=== PATIENT | female | born 1940 | race Caucasian/White ===

== ENCOUNTER 2021-11-20 21:10 | Emergency (ER) | payer BC, MEDICARE ==
[2021-11-20] MEDS ORDERED: REMDESIVIR 200 MG in Sodium Chloride 0.9% 250 ML IV ONE (21:23)
[2021-11-20] MEDS ORDERED: Acetaminophen 325 MG Tab PO PRN (21:23)
[2021-11-20] MEDS ORDERED: Dexamethasone 4 MG/ML SDV IVPUSH SCH (21:30)
[2021-11-20 21:32] VITALS: PULSE 78
--- NOTE | 2021-11-20 21:34 | EDM.PDOC ---
ED HPI GENERAL MEDICAL PROBLEM - General Chief Complaint: General Stated Complaint: COVID + [facility] Time Seen by Provider: 11/21/21 01:38 Source of Information: Reports: Patient History Limitations: Reports: Respiratory Distress - History of Present Illness INITIAL COMMENTS - FREE TEXT/NARRATIVE: This is an unimmunized 81-year-old female who presents via ambulance to the [facility] with significant fatigue and weakness. She reports shortness of breath. She was diagnosed with COVID-19 infection 3 days ago. She has been having symptoms for the past 5 days. She has had progressive weakness. She denies any significant cough. No nasal drainage or sinus pain. She does report sore throat. She lives at home with her spouse. Patient is DO NOT INTUBATE/DO NOT RESUSCITATE. Past medical history is notable for age-related macular degeneration of right eye, reactive airway disease, hyperlipidemia, impaired fasting glucose, dysphagia, osteoarthritis, and she is status post total right knee replacement. Medications include pantoprazole, albuterol, gabapentin, emu oil, Singulair, PreserVision, vitamin D3, cetirizine, calcium carbonate. Allergies are to disinfectants, latex, molds, perfumes. Patient has not received COVID-19 vaccination. She has a history of smoking. She quit 1984. She drinks alcohol occasionally. - Related Data Allergies Allergy/AdvReac Type Severity Reaction Status Date / Time Latex, Natural Rubber Allergy Airway Verified 11/20/21 21:20 Tightness Past Medical History - Past Surgical History Other HEENT Surgeries/Procedures: adnoids Other Female Surgeries/Procedures: bladder lift ED ROS GENERAL - Review of Systems Review Of Systems: See Below Constitutional: Reports: Malaise, Weakness, Fatigue HEENT: Reports: Throat Pain. Denies: Rhinitis, Sinus Problem Respiratory: Reports: Shortness of Breath. Denies: Cough Cardiovascular: Reports: No Symptoms Endocrine: Reports: No Symptoms GI/Abdominal: Reports: No Symptoms : Reports: No Symptoms Musculoskeletal: Reports: No Symptoms Skin: Reports: No Symptoms Neurological: Reports: No Symptoms Psychiatric: Reports: No Symptoms Hematologic/Lymphatic: Reports: No Symptoms Immunologic: Reports: No Symptoms ED EXAM, GENERAL - Physical Exam Exam: See Below Free Text/Narrative:: On exam, this patient appears very lethargic. She is awake and alert and answering questions appropriately. She is able to understand the severity of her condition. She is able to communicate her desires effectively. HEENT: Pupils equal. Conjunctiva clear. Mild pallor. Head is normocephalic and atraumatic. Hearing is intact. Nares are patent. No drainage. 1 mucosa is dry. No lesions or exudates. Nose pink. Neck: Trachea midline. No thyromegaly. No lymphadenopathy. Lungs: Bibasilar crackles. No rhonchi. No wheezes. Thing is somewhat shallow. Cardiovascular: Regular rate and rhythm. No murmurs. Abdomen: Soft and nontender. Nondistended. Extremities: Acrocyanosis present. Peripheral pulses are intact. No significant edema. Neurologic: Moving all limbs spontaneously. Patient grossly intact. Speech is intelligible. Exam Limited By: Respiratory Distress General Appearance: Lethargic #1 Interpretation EKG Date: 11/20/21 Time: 21:47 Rhythm: NSR Rate (Beats/Min): 78 P-Wave: Present QRS: Normal ST-T: Normal QT: Normal Course - Vital Signs Last Recorded V/S: Last Vital Signs Temp 98.2 F 11/20/21 22:07 Pulse 78 11/20/21 21:31 Resp 25 H 11/21/21 00:43 BP 116/57 L 11/21/21 00:43 Pulse Ox 93 L 11/21/21 00:43 Discussed principles of titrating FiO2. Discussed noninvasive positive pressure ventilation. Discussed admission and transfer. Discussed mechanical ventilation. Patient states that she would not want to be intubated or placed on a mechanical ventilator. She would except hospital transfer and she would accept noninvasive positive pressure ventilation. - Orders/Labs/Meds Orders: Active Orders 24 hr Category Date Time Status Cardiac Monitoring [RC] .As Directed Care 11/20/21 21:23 Active Positioning, Patient [RC] ASDIRECTED Care 11/20/21 21:24 Active Chest 1V Frontal [CR] Stat Exams 11/20/21 21:25 Taken CULTURE BLOOD [BC] Stat Lab 11/20/21 21:41 Received HEPATIC FUNCTION PANEL,HFP [CHEM] DAILY Lab 11/21/21 21:30 Ordered Acetaminophen [TylenoL] Med 11/20/21 21:23 Active 650 mg PO Q4H PRN Lidocaine 1% [Xylocaine-MPF 1%] Med 11/20/21 23:28 Active 2 ml INJECT Q2H PRN dexAMETHasone [Decadron] Med 11/20/21 21:30 Active 6 mg IVPUSH DAILY Isolation [COMM] Stat Oth 11/20/21 21:23 Ordered EKG 12 Lead [EK] Stat Ther 11/20/21 21:25 Ordered Medication Orders Acetaminophen (Acetaminophen 325 Mg Tab) 650 mg PO Q4H PRN PRN Reason: Fever Greater Than 101 Dexamethasone (Dexamethasone 4 Mg/Ml Sdv) 6 mg IVPUSH DAILY MIGUEL A Stop: 11/29/21 09:01 Last Admin: 11/20/21 22:04 Dose: 6 mg Documented by: CAROLE Lidocaine HCl (Lidocaine 1% 5 Ml Sdv) 2 ml INJECT Q2H PRN PRN Reason: add to potassium Last Admin: 11/21/21 01:24 Dose: 2 ml Documented by: MITCH Labs: Laboratory Tests 11/20/21 11/20/21 11/20/21 Range/Units 21:35 21:35 21:35 WBC 8.9 (3.2-11.0) K/uL RBC 4.82 (3.77-5.24) M/uL Hgb 14.5 (11.2-15.5) Hct 42.1 (34.3-46.0) % MCV 87.3 (81.4-99.0) fL MCH 30.1 L (31.6-35.5) pg MCHC 34.4 (31.6-35.5) g/dL Plt Count 263 (130-375) K/uL Add Manual Diff Yes Neutrophils % (Manual) 81 H (36-66) % Band Neutrophils % 1 L (5-11) % Lymphocytes % (Manual) 12 L (24-44) % Monocytes % (Manual) 6 (2-6) % Atypical Lymphocytes Few PT (9.2-10.6) sec INR APTT 25.8 (21.4-31.8) sec D-Dimer, Quantitative (0.0-500.0) ng/mL ABG Hemoglobin (12.0-16.0) g/dL ABG Oxyhemoglobin % ABG Carboxyhemoglobin (0.0-1.6) % ABG Methemoglobin % VBG pH (7.350-7.450) VBG pCO2 mm/Hg VBG pO2 mm/Hg VBG HCO3 mmol/L VBG Total CO2 mmol/L VBG O2 Saturation VBG O2 Content %vol VBG Base Excess mm/L O2 Delivery Device Sodium (140-148) mmol/L Potassium (3.6-5.2) mmol/L Chloride (100-108) mmol/L Carbon Dioxide (21-32) mmol/L Anion Gap (5.0-14.0) mmol/L BUN (7-18) mg/dL Creatinine (0.6-1.0) mg/dL Est Cr Clr Drug Dosing mL/min Estimated GFR (MDRD) (>60) Glucose (74-106) mg/dL Lactic Acid (0.4-2.0) mmol/L Calcium (8.5-10.1) mg/dL Ferritin 866 H (8-388) ng/ml Total Bilirubin (0.2-1.0) mg/dL Direct Bilirubin (0.0-0.2) mg/dL Indirect Bilirubin AST (15-37) U/L ALT (12-78) U/L Alkaline Phosphatase (46-116) U/L Lactate Dehydrogenase (82-234) U/L C-Reactive Protein (0.0-0.3) mg/dL Total Protein (6.4-8.2) g/dL Albumin (3.4-5.0) g/dL Globulin (2.3-3.5) g/dL Albumin/Globulin Ratio (1.2-2.2) Procalcitonin ng/mL 11/20/21 11/20/21 11/20/21 Range/Units 21:35 21:35 21:35 WBC (3.2-11.0) K/uL RBC (3.77-5.24) M/uL Hgb (11.2-15.5) Hct (34.3-46.0) % MCV (81.4-99.0) fL MCH (31.6-35.5) pg MCHC (31.6-35.5) g/dL Plt Count (130-375) K/uL Add Manual Diff Neutrophils % (Manual) (36-66) % Band Neutrophils % (5-11) % Lymphocytes % (Manual) (24-44) % Monocytes % (Manual) (2-6) % Atypical Lymphocytes PT (9.2-10.6) sec INR APTT (21.4-31.8) sec D-Dimer, Quantitative 2373.05 H (0.0-500.0) ng/mL ABG Hemoglobin 15.1 (12.0-16.0) g/dL ABG Oxyhemoglobin 46.6 % ABG Carboxyhemoglobin 2.4 H (0.0-1.6) % ABG Methemoglobin 0.8 % VBG pH 7.451 H (7.350-7.450) VBG pCO2 37.4 mm/Hg VBG pO2 27.2 mm/Hg VBG HCO3 25.7 mmol/L VBG Total CO2 22.4 mmol/L VBG O2 Saturation 48.1 VBG O2 Content 9.9 %vol VBG Base Excess 2.3 mm/L O2 Delivery Device Nasal cannula Sodium 137 L (140-148) mmol/L Potassium 3.0 L (3.6-5.2) mmol/L Chloride 100 (100-108) mmol/L Carbon Dioxide 27 (21-32) mmol/L Anion Gap 13.0 (5.0-14.0) mmol/L BUN 25 H (7-18) mg/dL Creatinine 0.9 (0.6-1.0) mg/dL Est Cr Clr Drug Dosing 41.24 mL/min Estimated GFR (MDRD) > 60 (>60) Glucose 173 H (74-106) mg/dL Lactic Acid (0.4-2.0) mmol/L Calcium 8.3 L (8.5-10.1) mg/dL Ferritin (8-388) ng/ml Total Bilirubin 0.5 (0.2-1.0) mg/dL Direct Bilirubin 0.15 (0.0-0.2) mg/dL Indirect Bilirubin 0.35 AST 71 H (15-37) U/L ALT 50 (12-78) U/L Alkaline Phosphatase 72 (46-116) U/L Lactate Dehydrogenase 689 H (82-234) U/L C-Reactive Protein 6.40 H (0.0-0.3) mg/dL Total Protein 6.1 L (6.4-8.2) g/dL Albumin 2.5 L (3.4-5.0) g/dL Globulin 3.6 H (2.3-3.5) g/dL Albumin/Globulin Ratio 0.7 L (1.2-2.2) Procalcitonin ng/mL 11/20/21 11/20/21 11/20/21 Range/Units 21:35 21:35 21:35 WBC (3.2-11.0) K/uL RBC (3.77-5.24) M/uL Hgb (11.2-15.5) Hct (34.3-46.0) % MCV (81.4-99.0) fL MCH (31.6-35.5) pg MCHC (31.6-35.5) g/dL Plt Count (130-375) K/uL Add Manual Diff Neutrophils % (Manual) (36-66) % Band Neutrophils % (5-11) % Lymphocytes % (Manual) (24-44) % Monocytes % (Manual) (2-6) % Atypical Lymphocytes PT 10.5 (9.2-10.6) sec INR 1.0 APTT (21.4-31.8) sec D-Dimer, Quantitative (0.0-500.0) ng/mL ABG Hemoglobin (12.0-16.0) g/dL ABG Oxyhemoglobin % ABG Carboxyhemoglobin (0.0-1.6) % ABG Methemoglobin % VBG pH (7.350-7.450) VBG pCO2 mm/Hg VBG pO2 mm/Hg VBG HCO3 mmol/L VBG Total CO2 mmol/L VBG O2 Saturation VBG O2 Content %vol VBG Base Excess mm/L O2 Delivery Device Sodium (140-148) mmol/L Potassium (3.6-5.2) mmol/L Chloride (100-108) mmol/L Carbon Dioxide (21-32) mmol/L Anion Gap (5.0-14.0) mmol/L BUN (7-18) mg/dL Creatinine (0.6-1.0) mg/dL Est Cr Clr Drug Dosing mL/min Estimated GFR (MDRD) (>60) Glucose (74-106) mg/dL Lactic Acid 2.1 H (0.4-2.0) mmol/L Calcium (8.5-10.1) mg/dL Ferritin (8-388) ng/ml Total Bilirubin (0.2-1.0) mg/dL Direct Bilirubin (0.0-0.2) mg/dL Indirect Bilirubin AST (15-37) U/L ALT (12-78) U/L Alkaline Phosphatase (46-116) U/L Lactate Dehydrogenase (82-234) U/L C-Reactive Protein (0.0-0.3) mg/dL Total Protein (6.4-8.2) g/dL Albumin (3.4-5.0) g/dL Globulin (2.3-3.5) g/dL Albumin/Globulin Ratio (1.2-2.2) Procalcitonin 0.06 ng/mL Meds: Medications Generic Name Dose Route Start Last Admin Trade Name Freq PRN Reason Stop Dose Admin Acetaminophen 650 mg 11/20/21 21:23 Acetaminophen 325 Mg Tab PO Q4H PRN Fever Greater Than 101 Dexamethasone 6 mg 11/20/21 21:30 11/20/21 22:04 Dexamethasone 4 Mg/Ml Sdv IVPUSH 11/29/21 09:01 6 mg DAILY MIGUEL A Administration Lidocaine HCl 2 ml 11/20/21 23:28 11/21/21 01:24 Lidocaine 1% 5 Ml Sdv INJECT 2 ml Q2H PRN Administration add to potassium Discontinued Medications Generic Name Dose Route Start Last Admin Trade Name Freq PRN Reason Stop Dose Admin Remdesivir 200 mg/ Sodium 250 mls @ 250 mls/hr 11/20/21 21:23 11/20/21 23:51 Chloride IV 11/20/21 22:22 250 mls/hr ONETIME ONE Administration Sodium Chloride 500 mls @ 500 mls/hr 11/20/21 22:30 11/20/21 23:50 Normal Saline IV 11/20/21 23:29 500 mls/hr .BOLUS ONE Administration Potassium Chloride 20 meq/ 0 mls @ 50 mls/hr 11/20/21 23:09 11/21/21 01:23 Premix IV 11/20/21 23:10 50 mls/hr ONETIME ONE Administration Sodium Chloride 100 mls @ 4 mls/sec 11/21/21 00:03 11/21/21 00:16 Normal Saline IV 11/21/21 00:04 4 mls/sec ASDIRECTED STA Administration Iopamidol 100 ml 11/21/21 00:02 11/21/21 00:16 Iopamidol 755 Mg/Ml 100 Ml Bottle IV 11/21/21 00:03 100 ml . DIRECTED STA Administration Lidocaine HCl Confirm 11/20/21 23:16 11/20/21 23:28 Lidocaine 1% 5 Ml Sdv Administered 11/20/21 23:17 Not Given Dose 5 ml .ROUTE .[facility] - Radiology Interpretation Free Text/Narrative:: CXR was ordered and interpreted by me pending official read from radiology. Chest x-ray shows diffuse, bilaterally, fluffy infiltrates. No fever. No consolidation. No clear indication for empiric antibiotics. Due to acute respiratory failure and significantly elevated D-dimer, order placed for CT angiogram to evaluate for pulmonary embolism and to help guide subsequent therapy. CT Results Date: 11/21/21 (Negative for pulmonary embolism. Positive for bilateral groundglass opacities c/w COVID pneumonia.) - Re-Assessments/Exams Free Text/Narrative Re-Assessment/Exam: 11/20/21 21:48 I spoke with the patient's on the phone. He concurred with her advance directives. Patient is now on 10 L nonrebreather mask and O2 sats are in the mid to upper 90s. Patient's mentation is stable. She does not appear to have respiratory distress. 11/20/21 22:05 I communicated the clinical impression with the daughter. Departure - Departure Time of Disposition: 01:38 Disposition: DC/Tfer to Acute Hospital 02 Condition: Poor Clinical Impression: Acute COVID-19, Bilateral pneumonia Respiratory failure Qualifiers: Chronicity: acute Respiratory failure complication: hypoxia Qualified Code(s): J96.01 - Acute respiratory failure with hypoxia - Discharge Information *PRESCRIPTION DRUG MONITORING PROGRAM REVIEWED*: Not Applicable *COPY OF PRESCRIPTION DRUG MONITORING REPORT IN PATIENT JOSEFINA: Not Applicable Instructions: Symptoms of COVID-19 - CDC (01/03/2021) Referrals: PCP,None [Primary Care Provider] - Forms: ED Department Discharge Sepsis Event Note (ED) - Evaluation Sepsis Screening Result: No Definite Risk - Focused Exam Vital Signs: Vital Signs Temp Pulse Resp BP Pulse Ox 11/21/21 00:43 25 H 116/57 L 93 L 11/20/21 23:12 26 H 111/54 L 94 L 11/20/21 22:07 98.2 F 24 H 106/59 L 98 11/20/21 21:31 78 20 94 L 11/20/21 21:17 98.0 F 81 20 105/40 L 84 L - Problem List & Annotations (1) Acute COVID-19 SNOMED Code(s): 9718544411 Code(s): U07.1 - COVID-19 Status: Acute Current Visit: Yes (2) Bilateral pneumonia SNOMED Code(s): 805248767 Code(s): J18.9 - PNEUMONIA, UNSPECIFIED ORGANISM Status: Acute Current Visit: Yes (3) Respiratory failure SNOMED Code(s): 987224459 Code(s): J96.90 - RESPIRATORY FAILURE, UNSP, UNSP W HYPOXIA OR HYPERCAPNIA Status: Acute Current Visit: Yes Qualifiers: Chronicity: acute Respiratory failure complication: hypoxia Qualified Code(s): J96.01 - Acute respiratory failure with hypoxia - Problem List Review Problem List Initiated/Reviewed/Updated: Yes - My Orders Last 24 Hours: My Active Orders 11/20/21 21:23 Cardiac Monitoring [RC] .As Directed Acetaminophen [TylenoL] 650 mg PO Q4H PRN Isolation [COMM] Stat 11/20/21 21:24 Positioning, Patient [RC] ASDIRECTED 11/20/21 21:25 Chest 1V Frontal [CR] Stat EKG 12 Lead [EK] Stat 11/20/21 21:30 dexAMETHasone [Decadron] 6 mg IVPUSH DAILY 11/20/21 21:41 CULTURE BLOOD [BC] Stat 11/20/21 23:28 Lidocaine 1% [Xylocaine-MPF 1%] 2 ml INJECT Q2H PRN 11/21/21 21:30 HEPATIC FUNCTION PANEL,HFP [CHEM] DAILY - Assessment/Plan Last 24 Hours: My Active Orders 11/20/21 21:23 Cardiac Monitoring [RC] .As Directed Acetaminophen [TylenoL] 650 mg PO Q4H PRN Isolation [COMM] Stat 11/20/21 21:24 Positioning, Patient [RC] ASDIRECTED 11/20/21 21:25 Chest 1V Frontal [CR] Stat EKG 12 Lead [EK] Stat 11/20/21 21:30 dexAMETHasone [Decadron] 6 mg IVPUSH DAILY 11/20/21 21:41 CULTURE BLOOD [BC] Stat 11/20/21 23:28 Lidocaine 1% [Xylocaine-MPF 1%] 2 ml INJECT Q2H PRN 11/21/21 21:30 HEPATIC FUNCTION PANEL,HFP [CHEM] DAILY Assessment:: 1. Acute COVID-19 infection with bilateral pneumonia 2. Respiratory failure secondary to #1 3. History of reactive airway disease Plan: Patient CT scan was reviewed. This was consistent with bilateral viral pneumonia. No evidence of pulmonary embolism. Patient still requiring high FiO2. Patient meets admission criteria. No beds available. I called [facility] in [place] and received acceptance by Dr. Kan. Patient will be transported via ground ambulance. EMTALA form was filled out and consent will be obtained. Family was notified. As the record shows, patient has received 1 dose of dexamethasone and 1 dose of remdesivir. She received potassium chloride to treat hypokalemia. She received a 500 mL fluid bolus.
[2021-11-20] MEDS ORDERED: Sodium Chloride 0.9% 500 ML IV ONE (22:30)
[2021-11-20] MEDS ORDERED: Potassium Chloride 20 MEQ in Premix Bag 2 BAG IV ONE (23:09)
[2021-11-21] MEDS ORDERED: Iopamidol 755 Mg/ML 100 ML Bottle IV STA (00:02)
[2021-11-21] MEDS ORDERED: Sodium Chloride 0.9% 100 ML IV STA (00:03)
--- NOTE | 2021-11-21 01:08 | CRLCT ---
For Patients: As a result of the Century Cures Act, medical imaging exams and procedure reports are released immediately into your electronic medical record. You may view this report before your referring provider. If you have questions, please contact your health care provider. INDICATION: Hypoxia, elevated D-dimer and COVID infection. TECHNIQUE: CT chest PE was acquired with 100 cc Isovue 370 intravenous contrast. COMPARISON: None. FINDINGS: Heart and vasculature: Contrast opacification of the pulmonary arterial tree is adequate. No sign of pulmonary embolism. Aortic arch is left-sided with atherosclerotic calcification. No pericardial effusion. Lungs and pleural: No pleural effusion or pneumothorax. Extensive bilateral ground-glass opacities throughout both lungs. Lymph nodes/mediastinum: Right hilar lymph nodes measure 12 millimeters. Subcarinal lymph nodes measures 13 millimeters. Chest wall: No masses. Upper abdomen: Small hiatal hernia. Bones: Unremarkable for age. IMPRESSION: 1. No evidence of pulmonary embolus. 2. Extensive bilateral ground-glass opacities throughout both lungs consistent with a viral pneumonia, presumed COVID-19 pneumonia in this setting. 3. Mediastinal and hilar adenopathy. Please note that all CT scans at this facility use dose modulation, iterative reconstruction, and/or weight-based dosing when appropriate to reduce radiation dose to as low as reasonably achievable. Dictated by John Soto MD @ 11/21/2021 1:07:29 AM (Electronically Signed)
[2021-11-21 01:47] VITALS: BP 112/65
--- NOTE | 2021-11-21 13:04 | CR ---
CHEST: Portable 11/20/2021 at 9:56 PM CLINICAL HISTORY:Respiratory failure COMPARISON:None FINDINGS: Patient is diffuse bilateral pulmonary infiltrates right greater than left. There are no effusions. Heart size appears normal. Impression: Moderate diffuse bilateral pneumonic infiltrates
== END 2021-11-21 02:44 ==
LOC: JP.ED 21:10
DX: U07.1 COVID-19 (principal); J12.82 Pneumonia due to coronavirus disease 2019; J96.01 Acute respiratory failure with hypoxia; Z91.040 Latex allergy status
CPT/HCPCS: 36415; 71045; 71275; 80048; 80076; 82728; 82803; 83605; 83615; 84145; 85025; 85379; 85610; 85730; 86140; 87040; 93005; 96365; 96366; 96367; 99285; J1100; J3480; J7040; J7050; Q9967